=== PATIENT | female | born 1960 | race Caucasian/White ===

== ENCOUNTER 2016-06-11 15:34 | Emergency (ER) | payer MEDICARE, OTHER, MEDICAID ==
[~2016-06-11] VITALS: Ht 172.7 cm; Wt 65.9 kg
[~2016-06-11 15:34] MED LIST: ASPI-1093 PO; DIVA500T2 PO; FOLI1TAB15 PO; MULT-29 GT; PHENY100 PO; QUET100T PO; QUET200T PO; THIA100T13 PO
[2016-06-11 16:06] LABS: BASOPHILS % (AUTO) 0.3 % (0.0-2.0); EOSINOPHILS % (AUTO) 4.7 % (1.0-6.0); HEMATOCRIT 40.5 % (36-46); HEMOGLOBIN 13.2 g/dL (12.0-16.0); LYMPHOCYTES # (AUTO) 2.5 K/uL (1.0-4.8); MEAN CORPUSCULAR HEMOGLOBIN 29.2 pg (26.0-34.0); MEAN CORPUSCULAR HGB CONC 32.5 G/dL (31.0-37.0); MEAN CORPUSCULAR VOLUME 90 fL (80-100); MONOCYTES # (AUTO) 0.7 K/uL (0.1-1.0); MONOCYTES % (AUTO) 8.1 % (2.0-9.0); NEUTROPHILS # (AUTO) 5.1 K/uL (1.8-7.7); NEUTROPHILS % (AUTO) 57.9 % (40.0-70.0); PLATELET COUNT (AUTO) 234 K/uL (150-450); RED BLOOD CELL COUNT(AUTO) 4.51 MIL/uL (4.00-5.20); RED CELL DISTRIBUTION WIDTH 14.3 % (11.5-14.5); WHITE BLOOD COUNT (AUTO) 8.8 K/uL (4.5-11.0)
[2016-06-11] MEDS ORDERED: HALO5TAB23 PO (16:07)
[2016-06-11] MEDS ORDERED: OXYB5TAB10 PO (16:07)
[2016-06-11] MEDS ORDERED: LEVE500T8 PO (16:07)
[2016-06-11] MEDS ORDERED: DIPH25CA48 PO ×2 (16:07)
[2016-06-11] MEDS ORDERED: CLON0.5T4 PO (16:07)
[2016-06-11] MEDS ORDERED: LACO200T2 PO (16:07)
[2016-06-11] MEDS ORDERED: ATOR10TA69 PO (16:07)
[2016-06-11] MEDS ORDERED: QUET200T PO (16:07)
[2016-06-11] MEDS ORDERED: OMEP20TA86 PO (16:07)
[2016-06-11] MEDS ORDERED: LEVO75TA4 PO (16:07)
[2016-06-11] MEDS ORDERED: LITH300C3 PO (16:07)
[2016-06-11] MEDS ORDERED: ESCI20TA PO (16:07)
[2016-06-11 16:19] LABS: ANION GAP 9 mmol/L (8-16); CALCIUM, TOTAL 9.7 mg/dL (8.8-10.5); CARBON DIOXIDE 29 mmol/L (22-29); CHLORIDE 104 mmol/L (98-107); GLOMERULAR FILTR. RATE CALC > 60 mL/min (>60); POTASSIUM 4.3 mmol/L (3.5-5.1); SODIUM SERUM 142 mmol/L (136-145); UREA NITROGEN, BLOOD 11 mg/dL (7-18)
[2016-06-11 16:23] LABS: ALANINE AMINOTRANSFERASE 24 U/L (12-78); ALBUMIN 3.9 g/dL (3.4-5.0); ASPARTATE AMINOTRANSFERASE 19 U/L (15-37); BILIRUBIN,TOTAL 0.2 mg/dL (0.1-1.0); TOTAL PROTEIN, SERUM 7.7 g/dL (6.4-8.2); VALPROIC ACID < 3 mcg/mL (50-100)
[2016-06-11] MEDS ORDERED: LORazepam 1 MG TABLET PO ONE (17:00)
[2016-06-11 17:05] LABS: LITHIUM 0.91 mmol/L (0.60-1.20)
[2016-06-11 18:27] VITALS: BP 126/70
== END 2016-06-11 18:53 | disposition home or self-care (01) ==
LOC: EMS 15:38
DX: F20.0 Paranoid schizophrenia (principal); F32.9 Major depressive disorder, single episode, unspecified; J44.9 Chronic obstructive pulmonary disease, unspecified; I10 Essential (primary) hypertension; K21.9 Gastro-esophageal reflux disease without esophagitis; E03.9 Hypothyroidism, unspecified; F17.210 Nicotine dependence, cigarettes, uncomplicated; F19.90 Other psychoactive substance use, unspecified, uncomplicated; Z91.040 Latex allergy status
CPT/HCPCS: 36415; 80053; 80164; 80178; 80185; 80307; 85025; 99284; 99406; G0480